=== PATIENT | male | born 1965 | race Caucasian/White ===

== ENCOUNTER 2019-11-05 13:18 | Emergency (ER) | payer OTHER, SELFPAY ==
[2019-11-05 13:47] VITALS: BP 165/76; PULSE 80; RESP 16; TEMP 36.5; O2SAT 98
--- NOTE | 2019-11-05 14:04 | ED.URI ---
HPI - URI/Sore Throat General Chief Complaint: Upper Respiratory Infection Stated Complaint: sinus/cough History of Present Illness HPI Narrative: This is a 54-year-old male comes in complaining cough sore throat patient states he has had some postnasal drip this been going on for the past 4 to 5 days. Patient states is been taken Tylenol B Profen and some cough and cold medication. Patient denies any fever nausea vomiting and/or diarrhea. Patient states that he thinks he needs some antibiotics. Related Data Home Medications Medication Instructions Recorded Confirmed glipizide 10 mg PO BID 11/05/19 11/05/19 lisinopril 5 mg PO DAILY 11/05/19 11/05/19 metformin 1,000 mg PO BID 11/05/19 11/05/19 ropinirole 1 mg PO DAILY 11/05/19 11/05/19 rosuvastatin [Crestor] 5 mg PO DAILY 11/05/19 11/05/19 Allergies Allergy/AdvReac Type Severity Reaction Status Date / Time ceftriaxone [From Rocephin] Allergy Hives Verified 11/05/19 13:50 Review of Systems Review of Systems: Narrative: CONSTITUTIONAL: Denies fever, chills, or sweats. EYES: Denies visual changes, redness, or discharge. ENT: Reports rhinorrhea, congestion, sore throat, or otalgia. CARDIOVASCULAR:Denies chest pain, palpitations, or edema. RESPIRATORY: Denies cough or dyspnea. GASTROINTESTINAL: Denies abdominal pain, nausea, vomiting, or diarrhea. GENITOURINARY: Denies dysuria or hematuria. SKIN:[Denies rash or itching. MUSCULOSKELETAL:Denies back pain, joint pain, or myalgia. NEUROLOGIC: Denies headache, numbness, or weakness. PSYCHIATRIC:Denies anxiety or depression PMFSH Social History Social History Gender identity (if verbalized by the patient): Male Comments At time as signature, I have reviewed and agree with nursing past medical, social, surgical and family history. Please see nursing chart for further information. There is no relevant family history pertinent to the presenting complaint. Exam Narrative: Exam Narrative: GENERAL:Well-appearing, well-nourished, and in no acute distress. HEAD:Normocephalic, atraumatic. EYES: PERRLA and EOMI. ENT: Nares clear, moderate rhinorrhea or epistaxis. Mucous membranes moist. NECK: Supple. CHEST: Clear to auscultation. No respiratory distress. HEART: Regular rate and rhythm. No murmur heard. Normal peripheral pulses. ABDOMEN: Soft, nontender, nondistended, normal active bowel sounds. EXTREMITIES: Normal range of motion. No edema. SKIN: Warm, dry, no rash. NEURO: No focal deficits. Alert and oriented x3. Course Vital Signs Vital signs: Vital Signs Temperature 97.7 F 11/05/19 13:47 Pulse Rate 80 11/05/19 13:47 Respiratory Rate 16 11/05/19 13:47 Blood Pressure 165/76 H 11/05/19 13:47 Pulse Oximetry 98 11/05/19 13:47 Temperature 97.7 F 11/05/19 13:47 Pulse Rate 80 11/05/19 13:47 Respiratory Rate 16 11/05/19 13:47 Blood Pressure 165/76 H 11/05/19 13:47 Pulse Oximetry 98 11/05/19 13:47 Your blood pressure was elevated in the clinic today, I feel that this is due to your acute illness rather than essential hypertension. please follow-up with your regular doctor for further evaluation and monitor for evaluation of hypertension Please [facility] schedule a followup visit with your personal physician with in the next 1-4 weeks for further evaluation and treatment. Also, ask your personal physician to assist you regarding blood pressure. Even blood pressure exceeding 120/80 may indicate pre-hypertension. If your symptoms persist, change or worsen significantly before you can contact your personal physician then please, without delay, go to the emergency department for further evaluation. MDM - URI/Sore Throat Differential Diagnosis Differential diagnosis: Likely upper respiratory infection, otitis media, sinusitis, viral infection and pharyngitis Discharge Plan Discharge Clinical Impression: Rhinosinusitis Patient Disposition: Home, Self-Care Condition: Stable Instructions:
== END 2019-11-05 14:17 | disposition home or self-care (01) ==
PROVIDERS: Emergency Provider Nurse Practitioner Family
DX: J31.0 Chronic rhinitis (principal); J32.9 Chronic sinusitis, unspecified; E78.00 Pure hypercholesterolemia, unspecified; I10 Essential (primary) hypertension; G25.81 Restless legs syndrome; E11.9 Type 2 diabetes mellitus without complications
CPT/HCPCS: 99203; G0463

== ENCOUNTER 2021-08-15 11:29 | Emergency (ER) | payer OTHER, SELFPAY ==
[2021-08-15 12:19] VITALS: BP 156/78; PULSE 74; RESP 18; TEMP 36.3; O2SAT 97
--- NOTE | 2021-08-15 14:03 | ED.URI ---
HPI - URI/Sore Throat General Chief Complaint: Upper Respiratory Infection Stated Complaint: cough,chest congestion Time Seen by Provider: 08/15/21 14:03 Source: patient and RN notes reviewed Mode of arrival: ambulatory Limitations: no limitations History of Present Illness HPI Narrative: 56-year-old male with history of Parkinson's disease and hypertension presents with concern for 4 to 5-day history of cough, pain with coughing, nasal congestion, rhinorrhea, sinus pain. He reports taking DayQuil and NyQuil with some occasional relief. Reports persistent nighttime coughing. He denies fever, body aches, chills, sweats. Has had a Covid test at an outside testing center but does not have results yet. MD elicited complaint: cough Related Data Home Medications Medication Instructions Recorded Confirmed metformin 1,000 mg PO BID 11/05/19 08/15/21 carbidopa-levodopa 1 tablet PO DIRECTED 08/15/21 08/15/21 gabapentin 100 mg PO DIRECTED 08/15/21 08/15/21 insulin glargine [Basaglar KwikPen 1 unit SUBCUT DIRECTED 08/15/21 08/15/21 U-100 Insulin] ropinirole 3 mg PO DAILY 08/15/21 08/15/21 rosuvastatin 20 mg PO DAILY 08/15/21 08/15/21 terbinafine HCl 250 mg PO DAILY 08/15/21 08/15/21 zolpidem 5 mg PO DAILY 08/15/21 08/15/21 Allergies Allergy/AdvReac Type Severity Reaction Status Date / Time ceftriaxone [From Rocephin] Allergy Hives Verified 08/15/21 14:00 Review of Systems Review of Systems: CONSTITUTIONAL: Reports malaise. Denies chills, sweats, or fever. EYES: Denies visual changes, redness, or discharge. ENT: Reports rhinorrhea, congestion, sinus pain. Otalgia and sore throat. CARDIOVASCULAR: Denies chest pain, palpitations, or edema. RESPIRATORY: Reports cough, chest pain with coughing. Denies dyspnea. GASTROINTESTINAL: Denies abdominal pain, nausea, vomiting, diarrhea SKIN: Denies rash or itching. MUSCULOSKELETAL: Denies myalgia. NEUROLOGIC: Denies headache. All systems reviewed & are unremarkable except as noted in HPI and below PMFSH Social History Social History Gender identity (if verbalized by the patient): Male Comments At time of signature, agree with nursing past medical, surgical, social and family history. There is no relevant family history pertinent to the presenting complaint Exam Narrative: GENERAL: Well-appearing, well-nourished, and in no acute distress. HEAD: Normocephalic EYES: PERRLA, conjunctivae clear ENT: Nares clear, turbinates edematous and erythematous, sinus tenderness. Mucous membranes moist. TM pearly simental with dull light reflex bilaterally; no tragal tenderness. Oropharynx not erythematous without lesions. Tonsils not enlarged and without exudate, no drooling, no hoarseness, no trismus, uvula midline. NECK: Supple. No lymphadenopathy CHEST: Scattered wheeze, otherwise clear to auscultation, breath sounds equal, aeration fair. No rhonchi, rales, or stridor. No respiratory distress, speaks in full sentences. HEART: Regular rate and rhythm. No murmur heard. SKIN: Warm, dry, no rash. NEURO: Alert and oriented x3. PSYCH: Normal mood and affect Course Course Emergency Course: Patient is aware of diagnosis, understands and agrees to treatment plan. Anticipatory guidance given. Patient agrees to follow-up as directed and is aware of reasons to seek care at the emergency department. Portions of this record may have been created with voice recognition software Vital Signs Vital signs: Vital Signs Temperature 97.4 F L 08/15/21 12:19 Pulse Rate 74 08/15/21 12:19 Respiratory Rate 18 08/15/21 12:19 Blood Pressure 156/78 H 08/15/21 12:19 Pulse Oximetry 97 08/15/21 12:19 Temperature 97.4 F L 08/15/21 12:19 Pulse Rate 74 08/15/21 12:19 Respiratory Rate 18 08/15/21 12:19 Blood Pressure 156/78 H 08/15/21 12:19 Pulse Oximetry 97 08/15/21 12:19 Reviewed. MDM - URI/Sore Throat MDM Narrative Medical decision making narrative: Differential diagnosis co
== END 2021-08-15 14:23 | disposition home or self-care (01) ==
PROVIDERS: Emergency Provider Nurse Practitioner; PCP Family Medicine
DX: J32.9 Chronic sinusitis, unspecified (principal); J40 Bronchitis, not specified as acute or chronic; G20 Parkinson's disease; G25.81 Restless legs syndrome; E78.00 Pure hypercholesterolemia, unspecified; I10 Essential (primary) hypertension; E11.9 Type 2 diabetes mellitus without complications
CPT/HCPCS: 99213; G0463